=== PATIENT | male | born 1940 | race Caucasian/White ===

== ENCOUNTER 2022-04-07 03:22 | Outpatient (CLI) | payer MEDICARE, SELFPAY ==
[2022-04-07 11:07] LABS: HCT 39.2 % (40.0-50.0); MCH 30.7 pg (27.0-33.0); MCHC 30.6 % (32.0-36.0); MCV 100 fL (80-95); MPV 10.7 fL (8.0-11.0); Platelet Count 206 10^3/uL (130-400); RBC 3.91 10^6/uL (4.36-5.78); RDW 14.2 % (11.8-14.1); RDW-SD 49.1 fL
[2022-04-07 11:12] LABS: WBC 135.06 10^3/uL (4.4-10.8)
[2022-04-07 11:20] LABS: ALT 15 U/L (16-63); AST 15 U/L (15-37); Albumin 3.9 g/dL (3.4-5.0); Alkaline Phosphatase 64 U/L (46-116); Anion Gap 9.8 mmol/L (3-11); BUN 23 mg/dL (7-18); Bilirubin, Total 1.2 mg/dL (0.2-1.0); CO2 26.2 mmol/L (21.0-32.0); CREATININE 1.1 mg/dL (0.70-1.30); Calcium 9.2 mg/dL (8.5-10.1); Chloride 104 mmol/L (98-107); Estimated GFR 67.44 (mL/min/1.73m2); Glucose 185 mg/dL (74-106); LDH 171 U/L (85-227); Potassium 4.3 mmol/L (3.5-5.1); Sodium 140 mmol/L (136-145); Total Protein 7.3 g/dL (6.4-8.2)
[2022-04-07 11:27] LABS: Absolute Lymphocyte Count 132.36 10^3/uL (1.2-3.4); Diff Comment Manual Differential; RBC Morphology Normal
[2022-04-07 16:36] LABS: Vitamin B12 235 pg/mL (193-986)
[2022-04-08 08:50] LABS: IgA 205 mg/dL (85-499); IgG 993 mg/dL (610-1616); IgM 37 mg/dL (35-242)
== END 2022-04-07 03:23 | disposition home or self-care (01) ==
PROVIDERS: Visit Provider Internal Medicine Hematology & Oncology
DX: C91.10 Chronic lymphocytic leukemia of B-cell type not having achieved remission (principal); E53.8 Deficiency of other specified B group vitamins
CPT/HCPCS: 36415; 80053; 82784; 82607; 83615; 85025

== ENCOUNTER 2022-05-12 01:45 | Outpatient (CLI) | payer MEDICARE, SELFPAY ==
[2022-05-12 09:08] LABS: HCT 39.8 % (40.0-50.0); HGB 12.4 g/dL (13.5-17.5); MCH 30.4 pg (27.0-33.0); MCHC 31.2 % (32.0-36.0); MCV 98 fL (80-95); MPV 10.3 fL (8.0-11.0); Platelet Count 187 10^3/uL (130-400); RBC 4.08 10^6/uL (4.36-5.78); RDW 13.2 % (11.8-14.1); RDW-SD 47.4 fL
[2022-05-12 09:17] LABS: Absolute Neutrophil Count 0.88 10^3/uL (1.2-6.7)
[2022-05-12 09:18] LABS: Absolute Lymphocyte Count 87.51 10^3/uL (1.2-3.4); Diff Comment Manual Differential; RBC Morphology Normal
[2022-05-12 09:21] LABS: WBC 88.39 10^3/uL (4.4-10.8)
[2022-05-12 10:00] LABS: ALT 22 U/L (16-63); AST 21 U/L (15-37); Albumin 3.6 g/dL (3.4-5.0); Alkaline Phosphatase 85 U/L (46-116); Anion Gap 11.5 mmol/L (3-11); BUN 23 mg/dL (7-18); Bilirubin, Total 0.6 mg/dL (0.2-1.0); CO2 24.5 mmol/L (21.0-32.0); Calcium 8.8 mg/dL (8.5-10.1); Chloride 102 mmol/L (98-107); Estimated GFR 75.61 (mL/min/1.73m2); Glucose 312 mg/dL (74-106); Potassium 4.4 mmol/L (3.5-5.1); Sodium 138 mmol/L (136-145); Total Protein 7.1 g/dL (6.4-8.2); Vitamin B12 325 pg/mL (193-986)
[2022-05-12 10:13] LABS: LDH 169 U/L (85-227)
[2022-05-13 10:52] LABS: IgA 205 mg/dL (85-499); IgG 945 mg/dL (610-1616); IgM 32 mg/dL (35-242)
== END 2022-05-12 01:46 | disposition home or self-care (01) ==
LOC: LBO 01:45
PROVIDERS: Visit Provider Internal Medicine Hematology & Oncology
DX: C91.10 Chronic lymphocytic leukemia of B-cell type not having achieved remission (principal); E53.8 Deficiency of other specified B group vitamins
CPT/HCPCS: 36415; 80053; 82784; 82607; 83615; 85025

== ENCOUNTER 2022-06-09 03:05 | Outpatient (CLI) | payer MEDICARE, SELFPAY ==
[2022-06-09 14:10] LABS: HCT 40.5 % (40.0-50.0); HGB 12.3 g/dL (13.5-17.5); MCHC 30.4 % (32.0-36.0); MCV 96 fL (80-95); MPV 10.5 fL (8.0-11.0); Platelet Count 159 10^3/uL (130-400); RBC 4.24 10^6/uL (4.36-5.78); RDW-SD 48.6 fL
[2022-06-09 14:23] LABS: Absolute Lymphocyte Count 81.14 10^3/uL (1.2-3.4); Absolute Monocyte Count 0.87 10^3/uL (0.1-0.8); Absolute Neutrophil Count 5.24 10^3/uL (1.2-6.7); Atypical Lymphocytes % 1; Diff Comment Manual Differential; RBC Morphology Normal; WBC 87.25 10^3/uL (4.4-10.8)
[2022-06-09 15:14] LABS: ALT 16 U/L (16-63); AST 17 U/L (15-37); Albumin 4.1 g/dL (3.4-5.0); Alkaline Phosphatase 83 U/L (46-116); Anion Gap 7.9 mmol/L (3-11); BUN 17 mg/dL (7-18); CO2 27.1 mmol/L (21.0-32.0); CREATININE 0.9 mg/dL (0.70-1.30); Calcium 9.2 mg/dL (8.5-10.1); Chloride 102 mmol/L (98-107); Glucose 223 mg/dL (74-106); Potassium 4.4 mmol/L (3.5-5.1); Sodium 137 mmol/L (136-145); Total Protein 7.7 g/dL (6.4-8.2); Vitamin B12 302 pg/mL (193-986)
[2022-06-09 15:24] LABS: LDH 152 U/L (85-227)
[2022-06-10 09:37] LABS: IgA 252 mg/dL (85-499); IgG 1112 mg/dL (610-1616); IgM 51 mg/dL (35-242)
== END 2022-06-09 03:06 | disposition home or self-care (01) ==
LOC: LBO 03:05
PROVIDERS: Visit Provider Internal Medicine Hematology & Oncology
DX: E53.8 Deficiency of other specified B group vitamins (principal); C91.10 Chronic lymphocytic leukemia of B-cell type not having achieved remission
CPT/HCPCS: 36415; 80053; 82784; 82607; 83615; 85025

== ENCOUNTER 2022-07-21 02:48 | Outpatient (CLI) | payer MEDICARE, SELFPAY ==
[2022-07-21 13:36] LABS: Abs Immature Grans 0.05 10^3/uL (0.0-0.06); HCT 37.8 % (40.0-50.0); HGB 12.5 g/dL (13.5-17.5); MCH 29.3 pg (27.0-33.0); MCHC 33.1 % (32.0-36.0); MCV 89 fL (80-95); MPV 10.6 fL (8.0-11.0); Platelet Count 207 10^3/uL (130-400); RBC 4.26 10^6/uL (4.36-5.78); RDW 14.7 % (11.8-14.1); RDW-SD 47.8 fL
[2022-07-21 13:49] LABS: ALT 18 U/L (16-63); AST 13 U/L (15-37); Albumin 3.7 g/dL (3.4-5.0); Alkaline Phosphatase 100 U/L (46-116); Anion Gap 10.3 mmol/L (3-11); BUN 34 mg/dL (7-18); Bilirubin, Total 1.2 mg/dL (0.2-1.0); CO2 21.7 mmol/L (21.0-32.0); CREATININE 1.3 mg/dL (0.70-1.30); Calcium 9.1 mg/dL (8.5-10.1); Chloride 101 mmol/L (98-107); Estimated GFR 55.19 (mL/min/1.73m2); Glucose 474 mg/dL (74-106); LDH 167 U/L (85-227); Potassium 4.9 mmol/L (3.5-5.1); Sodium 133 mmol/L (136-145); Total Protein 7.2 g/dL (6.4-8.2)
[2022-07-21 14:08] LABS: Absolute Lymphocyte Count 35.98 10^3/uL (1.2-3.4); Absolute Monocyte Count 0.79 10^3/uL (0.1-0.8); Absolute Neutrophil Count 2.77 10^3/uL (1.2-6.7); Atypical Lymphocytes % 16; Bands % 0; Diff Comment Manual Differential; RBC Morphology Normal
[2022-07-21 14:12] LABS: WBC 39.54 10^3/uL (4.4-10.8)
[2022-07-21 14:30] LABS: Vitamin B12 349 pg/mL (193-986)
[2022-07-22 11:16] LABS: IgA 273 mg/dL (85-499); IgG 1185 mg/dL (610-1616); IgM 60 mg/dL (35-242)
== END 2022-07-21 02:49 | disposition home or self-care (01) ==
PROVIDERS: Visit Provider Internal Medicine Hematology & Oncology
DX: C91.10 Chronic lymphocytic leukemia of B-cell type not having achieved remission (principal); E53.8 Deficiency of other specified B group vitamins
CPT/HCPCS: 36415; 80053; 82784; 82607; 83615; 85025

== ENCOUNTER 2022-11-24 11:21 | Outpatient (CLI) | payer MEDICARE, SELFPAY ==
[2022-11-24 12:58] LABS: Abs Immature Grans 0.04 10^3/uL (0.0-0.06); HCT 39.1 % (40.0-50.0); HGB 13.1 g/dL (13.5-17.5); MCH 32.3 pg (27.0-33.0); MCHC 33.5 % (32.0-36.0); MCV 97 fL (80-95); MPV 9.5 fL (8.0-11.0); Platelet Count 208 10^3/uL (130-400); RBC 4.05 10^6/uL (4.36-5.78); RDW 14.5 % (11.8-14.1); RDW-SD 51.4 fL
[2022-11-24 13:31] LABS: Absolute Lymphocyte Count 33.61 10^3/uL (1.2-3.4)
[2022-11-24 13:32] LABS: RBC Morphology Normal
[2022-11-24 13:33] LABS: Diff Comment Manual Differential
[2022-11-24 13:36] LABS: ALT 26 U/L (16-63); Alkaline Phosphatase 140 U/L (46-116); BUN 29 mg/dL (7-18); Bilirubin, Total 1.3 mg/dL (0.2-1.0); CREATININE 1.1 mg/dL (0.70-1.30); Calcium 9.1 mg/dL (8.5-10.1); Estimated GFR 67.44 (mL/min/1.73m2); Glucose 357 mg/dL (74-106); LDH 195 U/L (85-227); Total Protein 7.5 g/dL (6.4-8.2)
[2022-11-24 13:38] LABS: WBC 35.01 10^3/uL (4.4-10.8)
[2022-11-24 14:14] LABS: AST 16 U/L (15-37); Anion Gap 10.1 mmol/L (3-11); CO2 23.9 mmol/L (21.0-32.0); Chloride 103 mmol/L (98-107); Potassium 4.9 mmol/L (3.5-5.1); Sodium 137 mmol/L (136-145); Vitamin B12 235 pg/mL (193-986)
[2022-11-24 14:46] LABS: Hemoglobin A1C 11.8 % (<5.7)
[2022-11-25 09:41] LABS: IgA 247 mg/dL (85-499); IgG 1037 mg/dL (610-1616); IgM 46 mg/dL (35-242)
== END 2022-11-24 11:22 | disposition home or self-care (01) ==
LOC: LBO 11:22
PROVIDERS: Family Medicine; Visit Provider Internal Medicine Hematology & Oncology
DX: E11.9 Type 2 diabetes mellitus without complications (principal); E53.8 Deficiency of other specified B group vitamins; C91.10 Chronic lymphocytic leukemia of B-cell type not having achieved remission
CPT/HCPCS: 36415; 80053; 82784; 82607; 83036; 83615; 85025

== ENCOUNTER 2023-04-06 02:11 | Outpatient (CLI) | payer MEDICARE, SELFPAY ==
[2023-04-06 09:03] LABS: Abs Immature Grans 0.05 10^3/uL (0.0-0.06); Absolute Monocyte Count 5.77 10^3/uL (0.1-0.8); Absolute Neutrophil Count 2.16 10^3/uL (1.2-6.7); Basophils % 0.4; Eosinophils % 0.3; HCT 39.2 % (40.0-50.0); Immature Grans % 0.1; Lymphocytes % 81.6; MCHC 33.2 % (32.0-36.0); MCV 100 fL (80-95); MPV 10.3 fL (8.0-11.0); Monocytes % 12.8; Neutrophils % 4.8; RBC 3.94 10^6/uL (4.36-5.78); RDW-SD 51.4 fL
[2023-04-06 09:05] LABS: Absolute Basophil Count 0.18 10^3/uL (0.0-0.2); Absolute Eosinophil Count 0.14 10^3/uL (0.0-0.7); Absolute Lymphocyte Count 36.75 10^3/uL (1.2-3.4)
[2023-04-06 09:08] LABS: WBC 45.04 10^3/uL (4.4-10.8)
[2023-04-06 09:16] LABS: ALT 18 U/L (16-63); AST 22 U/L (15-37); Albumin 4.1 g/dL (3.4-5.0); Alkaline Phosphatase 72 U/L (46-116); Anion Gap 9.1 mmol/L (3-11); BUN 22 mg/dL (7-18); Bilirubin, Total 1.4 mg/dL (0.2-1.0); CO2 26.9 mmol/L (21.0-32.0); Calcium 9.7 mg/dL (8.5-10.1); Chloride 102 mmol/L (98-107); Estimated GFR 75.14 (mL/min/1.73m2); Glucose 213 mg/dL (74-106); LDH 235 U/L (85-227); Potassium 4.3 mmol/L (3.5-5.1); Sodium 138 mmol/L (136-145); Total Protein 7.8 g/dL (6.4-8.2)
[2023-04-06 09:24] LABS: Platelet Count 180 10^3/uL (130-400)
[2023-04-06 09:25] LABS: Diff Comment Agrees w/ Instrument; RBC Morphology Normal
[2023-04-06 09:58] LABS: Vitamin B12 184 pg/mL (193-986)
[2023-04-07 09:55] LABS: IgA 245 mg/dL (85-499); IgG 1202 mg/dL (610-1616); IgM 71 mg/dL (35-242)
== END 2023-04-06 02:12 | disposition home or self-care (01) ==
LOC: LBO 02:11
PROVIDERS: Nurse Practitioner Adult Health; Visit Provider Family Medicine
DX: E53.8 Deficiency of other specified B group vitamins (principal); C91.10 Chronic lymphocytic leukemia of B-cell type not having achieved remission
CPT/HCPCS: 36415; 80053; 82784; 82607; 83615; 85025

== ENCOUNTER 2023-07-13 14:09 | Outpatient (CLI) | payer MEDICARE, SELFPAY ==
[2023-07-13 12:52] LABS: HCT 41.2 % (40.0-50.0); HGB 13.4 g/dL (13.5-17.5); MCH 31.9 pg (27.0-33.0); MCHC 32.5 % (32.0-36.0); MCV 98 fL (80-95); Platelet Count 161 10^3/uL (130-400); RDW 14.4 % (11.8-14.1); RDW-SD 51.5 fL
[2023-07-13 13:01] LABS: WBC 78.67 10^3/uL (4.4-10.8)
[2023-07-13 13:09] LABS: Absolute Lymphocyte Count 71.59 10^3/uL (1.2-3.4); Absolute Monocyte Count 3.15 10^3/uL (0.1-0.8); Absolute Neutrophil Count 3.93 10^3/uL (1.2-6.7)
[2023-07-13 13:10] LABS: Diff Comment Manual Differential; RBC Morphology Normal
[2023-07-13 13:23] LABS: ALT 30 U/L (16-63); AST 15 U/L (15-37); Alkaline Phosphatase 79 U/L (46-116); Anion Gap 8.6 mmol/L (3-11); BUN 19 mg/dL (7-18); Bilirubin, Total 1.2 mg/dL (0.2-1.0); CO2 25.4 mmol/L (21.0-32.0); Calcium 9.1 mg/dL (8.5-10.1); Chloride 103 mmol/L (98-107); Estimated GFR 75.14 (mL/min/1.73m2); Glucose 389 mg/dL (74-106); LDH 176 U/L (85-227); Potassium 4.8 mmol/L (3.5-5.1); Sodium 137 mmol/L (136-145); Total Protein 7.3 g/dL (6.4-8.2)
[2023-07-13 18:44] LABS: Vitamin B12 289 pg/mL (193-986)
[2023-07-14 09:12] LABS: IgA 224 mg/dL (85-499); IgG 1000 mg/dL (610-1616); IgM 63 mg/dL (35-242)
== END 2023-07-13 14:10 | disposition home or self-care (01) ==
LOC: LBO 14:13
PROVIDERS: Visit Provider Nurse Practitioner Adult Health
DX: C91.10 Chronic lymphocytic leukemia of B-cell type not having achieved remission (principal)
CPT/HCPCS: 36415; 80053; 82784; 82607; 83615; 85025

== ENCOUNTER 2023-08-10 05:05 | Outpatient (CLI) | payer MEDICARE, SELFPAY ==
[2023-08-10 13:48] LABS: Abs Immature Grans 0.06 10^3/uL (0.0-0.06); HCT 39.7 % (40.0-50.0); HGB 12.9 g/dL (13.5-17.5); MCH 32.6 pg (27.0-33.0); MCHC 32.5 % (32.0-36.0); MCV 100 fL (80-95); MPV 9.6 fL (8.0-11.0); Platelet Count 175 10^3/uL (130-400); RBC 3.96 10^6/uL (4.36-5.78); RDW 14.6 % (11.8-14.1); RDW-SD 53.4 fL
[2023-08-10 14:10] LABS: ALT 25 U/L (16-63); AST 21 U/L (15-37); Albumin 3.9 g/dL (3.4-5.0); Alkaline Phosphatase 84 U/L (46-116); Anion Gap 9.6 mmol/L (3-11); BUN 17 mg/dL (7-18); Bilirubin, Total 1.3 mg/dL (0.2-1.0); CO2 26.4 mmol/L (21.0-32.0); CREATININE 0.9 mg/dL (0.70-1.30); Calcium 8.9 mg/dL (8.5-10.1); Chloride 104 mmol/L (98-107); Estimated GFR 85.27 (mL/min/1.73m2); Glucose 192 mg/dL (74-106); LDH 198 U/L (85-227); Potassium 4.5 mmol/L (3.5-5.1); Sodium 140 mmol/L (136-145); Total Protein 7.2 g/dL (6.4-8.2)
[2023-08-10 14:13] LABS: WBC 68.17 10^3/uL (4.4-10.8)
[2023-08-10 14:14] LABS: Absolute Lymphocyte Count 65.44 10^3/uL (1.2-3.4); Absolute Neutrophil Count 2.73 10^3/uL (1.2-6.7); Atypical Lymphocytes % 0; Bands % 0
[2023-08-10 14:15] LABS: Diff Comment Manual Differential
[2023-08-11 09:12] LABS: IgA 208 mg/dL (85-499); IgG 1016 mg/dL (610-1616); IgM 54 mg/dL (35-242)
== END 2023-08-10 05:06 | disposition home or self-care (01) ==
PROVIDERS: Visit Provider Nurse Practitioner Adult Health
DX: C91.10 Chronic lymphocytic leukemia of B-cell type not having achieved remission (principal)
CPT/HCPCS: 36415; 80053; 82784; 83615; 85025

== ENCOUNTER 2023-10-05 04:58 | Outpatient (CLI) | payer MEDICARE, SELFPAY ==
[2023-10-05 10:44] LABS: HCT 33.4 % (40.0-50.0); HGB 10.9 g/dL (13.5-17.5); MCH 33.7 pg (27.0-33.0); MCHC 32.6 % (32.0-36.0); MCV 103 fL (80-95); MPV 9.7 fL (8.0-11.0); Platelet Count 172 10^3/uL (130-400); RBC 3.23 10^6/uL (4.36-5.78); RDW 14.6 % (11.8-14.1); RDW-SD 55.4 fL
[2023-10-05 10:59] LABS: ALT 36 U/L (16-63); AST 25 U/L (15-37); Absolute Lymphocyte Count 51.07 10^3/uL (1.2-3.4); Absolute Neutrophil Count 2.69 10^3/uL (1.2-6.7); Albumin 3.7 g/dL (3.4-5.0); Alkaline Phosphatase 100 U/L (46-116); Anion Gap 7.3 mmol/L (3-11); BUN 26 mg/dL (7-18); Bilirubin, Total 1.2 mg/dL (0.2-1.0); CO2 25.7 mmol/L (21.0-32.0); Calcium 8.4 mg/dL (8.5-10.1); Chloride 108 mmol/L (98-107); Estimated GFR 75.14 (mL/min/1.73m2); Glucose 186 mg/dL (74-106); LDH 219 U/L (85-227); Potassium 4.3 mmol/L (3.5-5.1); Sodium 141 mmol/L (136-145); Total Protein 6.9 g/dL (6.4-8.2)
[2023-10-05 11:02] LABS: WBC 53.76 10^3/uL (4.4-10.8)
[2023-10-05 11:03] LABS: Diff Comment Manual Differential; RBC Morphology Normal
[2023-10-05 13:46] LABS: Reticulocyte 1.7 % (0.5-2.4)
[2023-10-05 14:03] LABS: Iron 80 ug/dL (65-175); Total Iron Binding Capacity 278 ug/dL (250-450); Transferrin Sat 29 % (20-55)
[2023-10-05 14:31] LABS: Ferritin 55 ng/mL (26-388); Folate 18.4 ng/mL (8.6-20.0); Vitamin B12 341 pg/mL (193-986)
[2023-10-06 10:29] LABS: IgA 194 mg/dL (85-499); IgG 1034 mg/dL (610-1616); IgM 45 mg/dL (35-242)
[2023-10-06 10:48] LABS: Haptoglobin 76 mg/dL (32-197)
== END 2023-10-05 04:59 | disposition home or self-care (01) ==
LOC: LBO 04:58
PROVIDERS: Visit Provider Nurse Practitioner Adult Health
DX: C91.10 Chronic lymphocytic leukemia of B-cell type not having achieved remission (principal)
CPT/HCPCS: 36415; 80053; 82784; 82607; 82728; 82746; 83010; 83540; 83550; 83615; 85025; 85045

== ENCOUNTER 2023-11-09 11:40 | Outpatient (CLI) | payer MEDICARE, SELFPAY ==
[2023-11-09 10:54] LABS: HCT 36.4 % (40.0-50.0); HGB 11.9 g/dL (13.5-17.5); MCHC 32.7 % (32.0-36.0); MCV 104 fL (80-95); MPV 10.4 fL (8.0-11.0); Platelet Count 133 10^3/uL (130-400); RDW 14.1 % (11.8-14.1); RDW-SD 53.7 fL
[2023-11-09 11:14] LABS: Absolute Lymphocyte Count 69.48 10^3/uL (1.2-3.4); Absolute Monocyte Count 1.45 10^3/uL (0.1-0.8); Absolute Neutrophil Count 1.45 10^3/uL (1.2-6.7); Atypical Lymphocytes % 1 %
[2023-11-09 11:15] LABS: Diff Comment Manual Differential; RBC Morphology Normal
[2023-11-09 11:24] LABS: ALT 23 U/L (16-63); AST 15 U/L (15-37); Albumin 4.1 g/dL (3.4-5.0); Alkaline Phosphatase 70 U/L (46-116); Anion Gap 8.3 mmol/L (3-11); BUN 26 mg/dL (7-18); Bilirubin, Total 1.3 mg/dL (0.2-1.0); CO2 26.7 mmol/L (21.0-32.0); CREATININE 0.9 mg/dL (0.70-1.30); Calcium 9.1 mg/dL (8.5-10.1); Chloride 105 mmol/L (98-107); Estimated GFR 85.27 (mL/min/1.73m2); Glucose 182 mg/dL (74-106); LDH 187 U/L (85-227); Potassium 4.7 mmol/L (3.5-5.1); Sodium 140 mmol/L (136-145); Total Protein 7.3 g/dL (6.4-8.2)
[2023-11-09 11:27] LABS: WBC 72.38 10^3/uL (4.4-10.8)
[2023-11-09 12:16] LABS: Vitamin B12 372 pg/mL (193-986)
[2023-11-10 09:32] LABS: IgA 200 mg/dL (85-499); IgG 1106 mg/dL (610-1616); IgM 50 mg/dL (35-242)
== END 2023-11-09 11:41 | disposition home or self-care (01) ==
LOC: LBO 11:40
PROVIDERS: Visit Provider Nurse Practitioner Adult Health
DX: C91.10 Chronic lymphocytic leukemia of B-cell type not having achieved remission (principal)
CPT/HCPCS: 36415; 80053; 82784; 82607; 83615; 85025; 85045

== ENCOUNTER 2024-01-18 10:30 | Outpatient (CLI) | payer MEDICARE, SELFPAY ==
[2024-01-18 10:42] LABS: HCT 31.9 % (40.0-50.0); HGB 10.5 g/dL (13.5-17.5); MCH 33.5 pg (27.0-33.0); MCHC 32.9 % (32.0-36.0); MCV 102 fL (80-95); MPV 9.8 fL (8.0-11.0); Platelet Count 143 10^3/uL (130-400); RBC 3.13 10^6/uL (4.36-5.78); RDW 14.7 % (11.8-14.1); RDW-SD 54.7 fL
[2024-01-18 11:02] LABS: ALT 29 U/L (16-63); AST 28 U/L (15-37); Albumin 3.4 g/dL (3.4-5.0); Alkaline Phosphatase 170 U/L (46-116); BUN 19 mg/dL (7-18); Bilirubin, Total 0.76 mg/dL (0.2-1.0); Calcium 8.7 mg/dL (8.5-10.1); Chloride 107 mmol/L (98-107); Estimated GFR 75.14 (mL/min/1.73m2); Glucose 181 mg/dL (74-106); LDH 183 U/L (85-227); Sodium 141 mmol/L (136-145); Total Protein 6.8 g/dL (6.4-8.2)
[2024-01-18 11:35] LABS: Absolute Eosinophil Count 0.39 10^3/uL (0.0-0.7); Absolute Lymphocyte Count 37.35 10^3/uL (1.2-3.4); Absolute Neutrophil Count 0.78 10^3/uL (1.2-6.7)
[2024-01-18 11:36] LABS: Other Cells % 1
[2024-01-18 11:37] LABS: Diff Comment Manual Differential; RBC Morphology Normal
[2024-01-18 11:38] LABS: WBC 38.91 10^3/uL (4.4-10.8)
[2024-01-19 15:55] LABS: IgA 193 mg/dL (85-499); IgG 1046 mg/dL (610-1616); IgM 53 mg/dL (35-242)
== END 2024-01-18 10:31 | disposition home or self-care (01) ==
LOC: LBO 10:30
PROVIDERS: Visit Provider Nurse Practitioner Adult Health
DX: C91.10 Chronic lymphocytic leukemia of B-cell type not having achieved remission (principal)
CPT/HCPCS: 36415; 80053; 82784; 83615; 85025

== ENCOUNTER 2024-03-14 15:04 | Outpatient (CLI) | payer MEDICARE, SELFPAY ==
[2024-03-14 14:19] LABS: Reticulocyte 1.6 % (0.5-2.4)
[2024-03-14 14:35] LABS: Abs Immature Grans 0.05 10^3/uL (0.0-0.06); HCT 35.2 % (40.0-50.0); HGB 11.2 g/dL (13.5-17.5); Immature Grans % 0.1 %; MCH 32.2 pg (27.0-33.0); MCHC 31.8 % (32.0-36.0); MCV 101 fL (80-95); MPV 10.1 fL (8.0-11.0); Platelet Count 158 10^3/uL (130-400); RBC 3.48 10^6/uL (4.36-5.78); RDW 15.1 % (11.8-14.1)
[2024-03-14 14:38] LABS: ALT 22 U/L (16-63); AST 20 U/L (15-37); Albumin 3.6 g/dL (3.4-5.0); Alkaline Phosphatase 100 U/L (46-116); Anion Gap 8.2 mmol/L (3-11); BUN 21 mg/dL (7-18); Bilirubin, Total 1.24 mg/dL (0.2-1.0); CO2 26.8 mmol/L (21.0-32.0); CREATININE 1.1 mg/dL (0.70-1.30); Calcium 9.3 mg/dL (8.5-10.1); Chloride 105 mmol/L (98-107); Estimated GFR 66.61 (mL/min/1.73m2); Glucose 202 mg/dL (74-106); LDH 184 U/L (85-227); Potassium 4.7 mmol/L (3.5-5.1); Sodium 140 mmol/L (136-145); Total Protein 7.3 g/dL (6.4-8.2)
[2024-03-14 14:52] LABS: Absolute Lymphocyte Count 63.08 10^3/uL (1.2-3.4); Absolute Monocyte Count 3.71 10^3/uL (0.1-0.8); Absolute Neutrophil Count 7.42 10^3/uL (1.2-6.7); Atypical Lymphocytes % 0 %; Bands % 1 %
[2024-03-14 15:18] LABS: Vitamin B12 449 pg/mL (193-986)
[2024-03-14 15:30] LABS: WBC 74.21 10^3/uL (4.4-10.8)
[2024-03-15 09:29] LABS: IgA 236 mg/dL (85-499); IgG 1283 mg/dL (610-1616); IgM 64 mg/dL (35-242)
== END 2024-03-14 15:05 | disposition home or self-care (01) ==
LOC: LBO 15:06
PROVIDERS: Visit Provider Nurse Practitioner Adult Health
DX: C91.10 Chronic lymphocytic leukemia of B-cell type not having achieved remission (principal); D64.9 Anemia, unspecified; E53.8 Deficiency of other specified B group vitamins
CPT/HCPCS: 36415; 80053; 82784; 82607; 83615; 85025; 85045

== ENCOUNTER 2024-06-20 04:06 | Outpatient (CLI) | payer MEDICARE, SELFPAY ==
[2024-06-20 10:20] LABS: Abs Immature Grans 0.12 10^3/uL (0.0-0.06); HCT 38.2 % (40.0-50.0); MCH 31.4 pg (27.0-33.0); MCHC 31.4 % (32.0-36.0); MCV 100 fL (80-95); MPV 9.5 fL (8.0-11.0); Platelet Count 117 10^3/uL (130-400); RBC 3.82 10^6/uL (4.36-5.78); RDW 15.6 % (11.8-14.1); RDW-SD 55.6 fL; Reticulocyte 1.5 % (0.5-2.4)
[2024-06-20 10:58] LABS: Absolute Neutrophil Count 1.48 10^3/uL (1.2-6.7); Bands % 0 %
[2024-06-20 10:59] LABS: Absolute Lymphocyte Count 117.21 10^3/uL (1.2-3.4); Absolute Monocyte Count 29.67 10^3/uL (0.1-0.8); Atypical Lymphocytes % 35 %
[2024-06-20 11:05] LABS: ALT 24 U/L (16-63); AST 24 U/L (15-37); Albumin 4.1 g/dL (3.4-5.0); Alkaline Phosphatase 109 U/L (46-116); Anion Gap 6.1 mmol/L (3-11); BUN 26 mg/dL (7-18); Bilirubin, Total 1.76 mg/dL (0.2-1.0); CO2 27.9 mmol/L (21.0-32.0); Calcium 9.5 mg/dL (8.5-10.1); Chloride 104 mmol/L (98-107); Estimated GFR 74.68 (mL/min/1.73m2); Glucose 217 mg/dL (74-106); Potassium 4.7 mmol/L (3.5-5.1); Sodium 138 mmol/L (136-145); Total Protein 7.9 g/dL (6.4-8.2); Vitamin B12 464 pg/mL (193-986)
[2024-06-20 11:08] LABS: WBC 148.37 10^3/uL (4.4-10.8)
[2024-06-20 11:24] LABS: LDH 187 U/L (85-227)
[2024-06-21 10:19] LABS: IgA 227 mg/dL (85-499); IgG 1293 mg/dL (610-1616); IgM 67 mg/dL (35-242)
== END 2024-06-20 04:07 | disposition home or self-care (01) ==
PROVIDERS: Visit Provider Nurse Practitioner Adult Health
DX: D64.9 Anemia, unspecified (principal); E53.8 Deficiency of other specified B group vitamins; C91.10 Chronic lymphocytic leukemia of B-cell type not having achieved remission
CPT/HCPCS: 36415; 80053; 82784; 82607; 83615; 85025; 85045

== ENCOUNTER 2024-07-18 03:17 | Outpatient (CLI) | payer MEDICARE, SELFPAY ==
[2024-07-18 08:45] LABS: HCT 34.1 % (40.0-50.0); HGB 10.2 g/dL (13.5-17.5); MCH 31.2 pg (27.0-33.0); MCHC 29.9 % (32.0-36.0); MCV 104 fL (80-95); MPV 10.7 fL (8.0-11.0); Platelet Count 146 10^3/uL (130-400); RBC 3.27 10^6/uL (4.36-5.78); RDW 18.3 % (11.8-14.1); RDW-SD 63.6 fL; Reticulocyte 1.1 % (0.5-2.4)
[2024-07-18 09:26] LABS: RBC Morphology Normal
[2024-07-18 09:27] LABS: Absolute Lymphocyte Count 144.96 10^3/uL (1.2-3.4); Absolute Neutrophil Count 3.05 10^3/uL (1.2-6.7); Other Cells % 3
[2024-07-18 09:28] LABS: ALT 17 U/L (16-63); AST 17 U/L (15-37); Alkaline Phosphatase 75 U/L (46-116); Anion Gap 8.6 mmol/L (3-11); BUN 23 mg/dL (7-18); Bilirubin, Total 1.48 mg/dL (0.2-1.0); CO2 26.4 mmol/L (21.0-32.0); CREATININE 0.9 mg/dL (0.70-1.30); Calcium 9.3 mg/dL (8.5-10.1); Chloride 107 mmol/L (98-107); Diff Comment Manual Differential; Estimated GFR 84.74 (mL/min/1.73m2); Glucose 167 mg/dL (74-106); Potassium 4.3 mmol/L (3.5-5.1); Sodium 142 mmol/L (136-145); Total Protein 7.4 g/dL (6.4-8.2)
[2024-07-18 09:29] LABS: Vitamin B12 > 2000 pg/mL (193-986)
[2024-07-18 09:32] LABS: WBC 152.59 10^3/uL (4.4-10.8)
[2024-07-18 09:40] LABS: LDH 153 U/L (85-227)
[2024-07-19 09:05] LABS: IgA 198 mg/dL (85-499); IgG 1171 mg/dL (610-1616); IgM 54 mg/dL (35-242)
== END 2024-07-18 03:18 | disposition home or self-care (01) ==
PROVIDERS: Visit Provider Nurse Practitioner Adult Health
DX: C91.10 Chronic lymphocytic leukemia of B-cell type not having achieved remission (principal); D64.9 Anemia, unspecified; E53.8 Deficiency of other specified B group vitamins
CPT/HCPCS: 36415; 80053; 82784; 82607; 83615; 85025; 85045

== ENCOUNTER 2024-08-15 02:22 | Outpatient (CLI) | payer MEDICARE, SELFPAY ==
[2024-08-15 09:44] LABS: Abs Immature Grans 0.09 10^3/uL (0.0-0.06); HCT 35.8 % (40.0-50.0); HGB 10.7 g/dL (13.5-17.5); Immature Grans % 0.1 %; Lymphocytes % 97.8 %; MCH 32.3 pg (27.0-33.0); MCHC 29.9 % (32.0-36.0); MCV 108 fL (80-95); Monocytes % 0.9 %; Neutrophils % 1.2 %; Platelet Count 156 10^3/uL (130-400); RBC 3.31 10^6/uL (4.36-5.78); RDW 19.8 % (11.8-14.1); RDW-SD 68.1 fL; Reticulocyte 1.6 % (0.5-2.4)
[2024-08-15 09:47] LABS: Absolute Lymphocyte Count 175.44 10^3/uL (1.2-3.4); Absolute Monocyte Count 1.61 10^3/uL (0.1-0.8); Absolute Neutrophil Count 2.15 10^3/uL (1.2-6.7)
[2024-08-15 09:58] LABS: Diff Comment Agrees w/ Instrument; Macrocytosis 2+
[2024-08-15 10:00] LABS: WBC 179.39 10^3/uL (4.4-10.8)
[2024-08-15 10:13] LABS: ALT 24 U/L (16-63); AST 16 U/L (15-37); Alkaline Phosphatase 74 U/L (46-116); Anion Gap 11.1 mmol/L (3-11); BUN 26 mg/dL (7-18); Bilirubin, Total 1.4 mg/dL (0.2-1.0); CO2 25.9 mmol/L (21.0-32.0); CREATININE 0.9 mg/dL (0.70-1.30); Calcium 9.5 mg/dL (8.5-10.1); Chloride 105 mmol/L (98-107); Estimated GFR 84.74 (mL/min/1.73m2); Glucose 136 mg/dL (74-106); LDH 143 U/L (85-227); Potassium 4.4 mmol/L (3.5-5.1); Sodium 142 mmol/L (136-145); Total Protein 7.4 g/dL (6.4-8.2)
[2024-08-16 11:02] LABS: IgA 202 mg/dL (85-499); IgG 1101 mg/dL (610-1616); IgM 52 mg/dL (35-242)
== END 2024-08-15 02:23 | disposition home or self-care (01) ==
PROVIDERS: Visit Provider Nurse Practitioner Adult Health
DX: C91.10 Chronic lymphocytic leukemia of B-cell type not having achieved remission (principal); D64.9 Anemia, unspecified
CPT/HCPCS: 36415; 80053; 82784; 83615; 85025; 85045

== ENCOUNTER 2024-09-12 03:28 | Outpatient (CLI) | payer MEDICARE, SELFPAY ==
[2024-09-12 08:21] LABS: Abs Immature Grans 0.17 10^3/uL (0.0-0.06); HCT 36.5 % (40.0-50.0); HGB 10.8 g/dL (13.5-17.5); MCHC 29.6 % (32.0-36.0); MCV 108 fL (80-95); MPV 10.1 fL (8.0-11.0); Platelet Count 178 10^3/uL (130-400); RBC 3.37 10^6/uL (4.36-5.78); RDW 15.9 % (11.8-14.1); RDW-SD 58.3 fL; Reticulocyte 1.1 % (0.5-2.4)
[2024-09-12 08:38] LABS: Absolute Lymphocyte Count 160.41 10^3/uL (1.2-3.4); Absolute Neutrophil Count 3.27 10^3/uL (1.2-6.7)
[2024-09-12 08:39] LABS: Diff Comment Manual Differential; Macrocytosis 1+
[2024-09-12 08:40] LABS: ALT 17 U/L (16-63); AST 19 U/L (15-37); Albumin 3.6 g/dL (3.4-5.0); Alkaline Phosphatase 101 U/L (46-116); Anion Gap 12.6 mmol/L (3-11); BUN 29 mg/dL (7-18); CO2 23.4 mmol/L (21.0-32.0); Calcium 9.2 mg/dL (8.5-10.1); Chloride 104 mmol/L (98-107); Estimated GFR 74.68 (mL/min/1.73m2); Glucose 256 mg/dL (74-106); LDH 153 U/L (85-227); Potassium 4.3 mmol/L (3.5-5.1); Sodium 140 mmol/L (136-145); Total Protein 7.3 g/dL (6.4-8.2)
[2024-09-12 08:42] LABS: WBC 163.68 10^3/uL (4.4-10.8)
[2024-09-13 09:26] LABS: IgA 234 mg/dL (85-499); IgG 1120 mg/dL (610-1616); IgM 52 mg/dL (35-242)
== END 2024-09-12 03:29 | disposition home or self-care (01) ==
LOC: LBO 03:28
PROVIDERS: Visit Provider Nurse Practitioner Adult Health
DX: C91.10 Chronic lymphocytic leukemia of B-cell type not having achieved remission (principal); D64.9 Anemia, unspecified
CPT/HCPCS: 36415; 80053; 82784; 83615; 85025; 85045

== ENCOUNTER 2024-10-24 02:43 | Outpatient (CLI) | payer MEDICARE, SELFPAY ==
[2024-10-24 08:29] LABS: Abs Immature Grans 0.13 10^3/uL (0.0-0.06); Eosinophils % 0.3 %; HCT 36.8 % (40.0-50.0); HGB 11.1 g/dL (13.5-17.5); Immature Grans % 0.1 %; Lymphocytes % 96.1 %; MCH 30.6 pg (27.0-33.0); MCHC 30.2 % (32.0-36.0); MCV 101 fL (80-95); MPV 9.9 fL (8.0-11.0); Monocytes % 1.1 %; Neutrophils % 2.4 %; Platelet Count 231 10^3/uL (130-400); RBC 3.63 10^6/uL (4.36-5.78); RDW 16.2 % (11.8-14.1); RDW-SD 54.9 fL; Reticulocyte 1.7 % (0.5-2.4)
[2024-10-24 08:30] LABS: Absolute Lymphocyte Count 128.25 10^3/uL (1.2-3.4); Absolute Monocyte Count 1.47 10^3/uL (0.1-0.8)
[2024-10-24 08:40] LABS: Diff Comment Agrees w/ Instrument; RBC Morphology Normal
[2024-10-24 08:44] LABS: WBC 133.45 10^3/uL (4.4-10.8)
[2024-10-24 08:50] LABS: ALT 17 U/L (16-63); AST 19 U/L (15-37); Albumin 3.3 g/dL (3.4-5.0); Alkaline Phosphatase 91 U/L (46-116); Anion Gap 6.3 mmol/L (3-11); BUN 20 mg/dL (7-18); Bilirubin, Total 0.8 mg/dL (0.2-1.0); CO2 28.7 mmol/L (21.0-32.0); CREATININE 0.9 mg/dL (0.70-1.30); Calcium 9.1 mg/dL (8.5-10.1); Chloride 105 mmol/L (98-107); Estimated GFR 84.74 (mL/min/1.73m2); Glucose 190 mg/dL (74-106); LDH 159 U/L (85-227); Potassium 4.6 mmol/L (3.5-5.1); Sodium 140 mmol/L (136-145); Total Protein 6.9 g/dL (6.4-8.2)
[2024-10-24 09:26] LABS: Vitamin B12 988 pg/mL (193-986)
[2024-10-25 10:17] LABS: IgA 247 mg/dL (85-499); IgG 974 mg/dL (610-1616); IgM 55 mg/dL (35-242)
== END 2024-10-24 02:44 | disposition home or self-care (01) ==
LOC: LBO 02:43
PROVIDERS: Visit Provider Nurse Practitioner Adult Health
DX: C91.10 Chronic lymphocytic leukemia of B-cell type not having achieved remission (principal); D64.9 Anemia, unspecified; E53.8 Deficiency of other specified B group vitamins
CPT/HCPCS: 36415; 80053; 82784; 82607; 83615; 85025; 85045

== ENCOUNTER 2024-11-21 04:17 | Outpatient (CLI) | payer MEDICARE, SELFPAY ==
[2024-11-21 09:59] LABS: Abs Immature Grans 0.07 10^3/uL (0.0-0.06); HCT 35.1 % (40.0-50.0); HGB 10.9 g/dL (13.5-17.5); Immature Grans % 0.1 %; MCH 31.1 pg (27.0-33.0); MCHC 31.1 % (32.0-36.0); MCV 100 fL (80-95); MPV 9.8 fL (8.0-11.0); Platelet Count 173 10^3/uL (130-400); RBC 3.51 10^6/uL (4.36-5.78); RDW 18.1 % (11.8-14.1); RDW-SD 62.2 fL
[2024-11-21 10:20] LABS: ALT 23 U/L (16-63); AST 20 U/L (15-37); Albumin 3.6 g/dL (3.4-5.0); Alkaline Phosphatase 75 U/L (46-116); Anion Gap 13.5 mmol/L (3-11); BUN 25 mg/dL (7-18); Bilirubin, Total 1.4 mg/dL (0.2-1.0); CO2 22.5 mmol/L (21.0-32.0); Calcium 8.6 mg/dL (8.5-10.1); Chloride 105 mmol/L (98-107); Estimated GFR 87.81 (mL/min/1.73m2); Glucose 237 mg/dL (74-106); LDH 166 U/L (85-227); Potassium 4.3 mmol/L (3.5-5.1); Sodium 141 mmol/L (136-145); Total Protein 6.7 g/dL (6.4-8.2)
[2024-11-21 10:21] LABS: WBC 102.36 10^3/uL (4.4-10.8)
== END 2024-11-21 04:18 | disposition home or self-care (01) ==
LOC: LBO 04:17
PROVIDERS: Visit Provider Nurse Practitioner Adult Health
DX: D64.9 Anemia, unspecified (principal)
CPT/HCPCS: 36415; 80053; 82784; 83615; 85025; 85045

== ENCOUNTER 2024-11-21 12:33 | Outpatient (CLI) | payer MEDICARE, SELFPAY ==
--- NOTE | 2024-11-21 | DI.CT_ITS ---
Exam(s) CT CHEST WO EXAM: CT CHEST WO CLINICAL HISTORY: R91.8,R06.9,D84.9 Opacity lung on imaging study,LEWIS,Immunocompromised state. TECHNIQUE: Imaging protocol: Axial computed tomography images were obtained and coronal and sagittal reformatted images were created and reviewed. Computer aided detection (CAD) was utilized. CONTRAST MATERIAL: Noncontrast COMPARISON: CT CT CTA CHEST W AND/OR WO CONTRAST from 08/21/2024 FINDINGS: Pulmonary parenchyma: Clearing of previously noted bilateral ground-glass opacities. No consolidation. No suspicious nodules. Linear scarring at the medial left upper lobe. Interstitial changes: Interstitial changes greater peripherally and at the lung bases. Emphysema: None. Tracheobronchial tree: No mucous plugging. No bronchiectasis . Pleura: No effusion or pneumothorax. Heart: The heart is mildly dilated. The coronary arteries are heavily calcified Aorta: Thoracic aorta non-dilated. Mild atherosclerotic changes. Lymph nodes: No enlarged lymph nodes. Bones: Severe degenerative changes are seen of the left shoulder. No evidence of compression fracture. Upper abdomen: Unremarkable. Soft tissues: Unremarkable. IMPRESSION: Interval clearing of bilateral pulmonary opacities. Chronic interstitial lung disease greater at the lung bases. RADIATION DOSE DELIVERED: 267.07mGy.cm Total DLP 267.07mGy.cm Total DLP DATA REPOSITORY: All CT scans at this facility are submitted to the National Radiology Data Registry (NRDR) Dose Index Registry (DIR) with the [employer] ([employer]). RADIATION OPTIMIZATION: All CT scans at this facility use at least one of these dose optimization techniques: automated exposure control; mA and/or kV adjustment per patient size (includes targeted exams where dose is matched to clinical indication); or iterative reconstruction.
== END 2024-11-21 12:53 ==
PROVIDERS: Visit Provider Internal Medicine
DX: R91.8 Other nonspecific abnormal finding of lung field (principal); D84.9 Immunodeficiency, unspecified
CPT/HCPCS: 71250

== ENCOUNTER 2025-01-09 03:10 | Outpatient (CLI) | payer MEDICARE, SELFPAY ==
[2025-01-09 14:45] LABS: Abs Immature Grans 0.09 10^3/uL (0.0-0.06); HCT 36.7 % (40.0-50.0); HGB 11.7 g/dL (13.5-17.5); Immature Grans % 0.1 %; MCH 31.0 pg (27.0-33.0); MCHC 31.9 % (32.0-36.0); MCV 97 fL (80-95); MPV 9.9 fL (8.0-11.0); Platelet Count 172 10^3/uL (130-400); RBC 3.77 10^6/uL (4.36-5.78); RDW 15.4 % (11.8-14.1); RDW-SD 54.6 fL
[2025-01-09 14:55] LABS: RBC Morphology Normal
[2025-01-09 14:57] LABS: ALT 20 U/L (16-63); AST 20 U/L (15-37); Albumin 4.1 g/dL (3.4-5.0); Alkaline Phosphatase 68 U/L (46-116); Anion Gap 7.4 mmol/L (3-11); BUN 28 mg/dL (7-18); Bilirubin, Total 1.6 mg/dL (0.2-1.0); CO2 27.6 mmol/L (21.0-32.0); Calcium 9.5 mg/dL (8.5-10.1); Chloride 105 mmol/L (98-107); Estimated GFR 74.68 (mL/min/1.73m2); Glucose 130 mg/dL (74-106); LDH 216 U/L (85-227); Potassium 4.9 mmol/L (3.5-5.1); Sodium 140 mmol/L (136-145); Total Protein 7.2 g/dL (6.4-8.2)
[2025-01-09 14:58] LABS: WBC 79.50 10^3/uL (4.4-10.8)
== END 2025-01-09 03:11 | disposition home or self-care (01) ==
LOC: LBO 03:10
PROVIDERS: Visit Provider Nurse Practitioner Adult Health
DX: C91.10 Chronic lymphocytic leukemia of B-cell type not having achieved remission (principal); D64.9 Anemia, unspecified
CPT/HCPCS: 36415; 80053; 82784; 83615; 85025; 85045

== ENCOUNTER 2025-03-13 12:35 | Outpatient (CLI) | payer MEDICARE, SELFPAY ==
[2025-03-13 11:39] LABS: HCT 38.7 % (40.0-50.0); HGB 12.3 g/dL (13.5-17.5); Immature Grans % 0.0 %; MCH 31.2 pg (27.0-33.0); MCHC 31.8 % (32.0-36.0); MCV 98 fL (80-95); MPV 9.9 fL (8.0-11.0); Platelet Count 176 10^3/uL (130-400); RBC 3.94 10^6/uL (4.36-5.78); RDW 15.1 % (11.8-14.1); RDW-SD 54.2 fL
[2025-03-13 11:54] LABS: ALT 22 U/L (16-63); AST 19 U/L (15-37); Albumin 3.7 g/dL (3.4-5.0); Alkaline Phosphatase 83 U/L (46-116); Anion Gap 6.8 mmol/L (3-11); BUN 21 mg/dL (7-18); Bilirubin, Total 1.1 mg/dL (0.2-1.0); CO2 29.2 mmol/L (21.0-32.0); Calcium 9.1 mg/dL (8.5-10.1); Chloride 105 mmol/L (98-107); Estimated GFR 84.22 (mL/min/1.73m2); Glucose 176 mg/dL (74-106); LDH 191 U/L (85-227); Potassium 4.4 mmol/L (3.5-5.1); Sodium 141 mmol/L (136-145); Total Protein 7.2 g/dL (6.4-8.2)
[2025-03-13 11:56] LABS: WBC 49.20 10^3/uL (4.4-10.8)
[2025-03-13 11:57] LABS: Abs Immature Grans 0.00 10^3/uL (0.0-0.06); RBC Morphology Normal
[2025-03-13 12:36] LABS: Vitamin B12 756 pg/mL (193-986)
== END 2025-03-13 12:36 | disposition home or self-care (01) ==
LOC: LBO 12:35
PROVIDERS: Visit Provider Nurse Practitioner Adult Health
DX: C91.10 Chronic lymphocytic leukemia of B-cell type not having achieved remission (principal); E53.8 Deficiency of other specified B group vitamins
CPT/HCPCS: 36415; 80053; 82784; 82607; 83615; 85025